=== PATIENT | male | born 1960 | race Caucasian/White ===

== ENCOUNTER 2017-09-04 10:53 | Emergency (ER) | payer SELFPAY ==
[2017-09-04] MEDS ORDERED: hydrALAZINE 20 MG/ML VIAL ONE (11:39)
[2017-09-04 12:03] LABS: Prothrombin Time 13.1 SEC (12.0-14.7)
[2017-09-04 12:13] LABS: Troponin I Less than 0.010 ng/mL (< 0.028)
[2017-09-04 12:18] LABS: ALT (SGPT) 7 U/L (8-55); AST (SGOT) 18 U/L (5-34); Alkaline Phosphatase 86 U/L (40-150); Anion Gap 11 mmol/L (10-20); BUN (Urea Nitrogen) 12 mg/dL (8.4-25.7); Bilirubin, Total 0.6 mg/dL (0.2-1.2); CK (CPK) 95 U/L (30-200); Calc. Creatinine Clearance 0 mL/min (70-130); Calcium 9.2 mg/dL (7.8-10.44); Carbon Dioxide 27 mmol/L (22-29); Chloride 105 mmol/L (98-107); Estimated GFR-MDRD Greater than 90; Globulin 3.4 g/dL (2.4-3.5); Lipase 37 U/L (8-78); Protein, Total 7.5 g/dL (6.0-8.3)
--- NOTE | 2017-09-04 12:42 | RAD ---
RADIOGRAPH CHEST 2 VIEWS: HISTORY: A 56-year-old male with hemoptysis. FINDINGS: There is no air space density, pulmonary edema, pleural effusion, pneumothorax, or cardiomegaly. IMPRESSION: No acute cardiopulmonary findings. jn [] POS: [facility]
[2017-09-04 12:53] LABS: #Basophils 0.1 thou/uL (0.0-0.2); #Eosinphils 0.2 thou/uL (0.0-0.7); #Lymphocytes 2.7 thou/uL (1.20-3.40); #Monocytes 0.5 thou/uL (0.11-0.59); #Neutrophils 3.5 thou/uL (1.40-6.50); %Basophils 1.1 % (0.0-1.0); %Eosinophils 2.3 % (0.0-10.0); %Lymphocytes 38.4 % (21.0-51.0); %Monocytes 7.3 % (0.0-10.0); Hematocrit 54.1 % (42.0-52.0); Red Blood Cell (RBC) Count 5.72 mill/uL (4.70-6.10)
[2017-09-04 13:08] LABS: Mean Platelet Volume 10.1 fL (7.4-10.4)
[2017-09-04 14:46] LABS: Troponin I Less than 0.010 ng/mL (< 0.028)
--- NOTE | 2017-10-06 17:01 | EKG ---
Test Reason : Blood Pressure : / mmHG Vent. Rate : 071 BPM Atrial Rate : 071 BPM P-R Int : 124 ms QRS Dur : 086 ms QT Int : 380 ms P-R-T Axes : 082 072 090 degrees QTc Int : 412 ms Sinus rhythm with occasional ventricular-paced complexes and Premature supraventricular complexes Abnormal ECG Confirmed by ANY BRITTON ([id number]), movie editor CORINNA ACEVEDO ([id number]) on 10/06/2017 5:00:56 PM Referred By: Confirmed By:ANY BRITTON
== END 2017-09-04 15:27 | disposition home or self-care (01) ==
LOC: ERS 10:53
DX: R05 Cough (principal); I10 Essential (primary) hypertension; F17.210 Nicotine dependence, cigarettes, uncomplicated
CPT/HCPCS: 36415; 71020; 80053; 82553; 83690; 84484; 85025; 85610; 85730; 93005; 94640; 96374; J0360; J7620

== ENCOUNTER 2017-09-08 17:22 | Emergency (ER) | payer SELFPAY ==
[2017-09-08] MEDS ORDERED: Fentanyl 100 MCG/2 ML VIAL ONE (17:42)
[2017-09-08 18:07] LABS: #Basophils 0.1 thou/uL (0.0-0.2); #Eosinphils 0.2 thou/uL (0.0-0.7); #Monocytes 0.7 thou/uL (0.11-0.59); #Neutrophils 4.6 thou/uL (1.40-6.50); %Basophils 1.1 % (0.0-1.0); %Eosinophils 1.8 % (0.0-10.0); %Lymphocytes 35.2 % (21.0-51.0); %Monocytes 8.2 % (0.0-10.0); Hematocrit 50.8 % (42.0-52.0); Mean Platelet Volume 9.4 fL (7.4-10.4); Red Blood Cell (RBC) Count 5.38 mill/uL (4.70-6.10); White Blood Cell (WBC) Count 8.6 thou/uL (4.8-10.8)
[2017-09-08 18:12] LABS: PTT 29.3 SEC (22.9-36.1); Prothrombin Time 13.5 SEC (12.0-14.7)
[2017-09-08 18:26] LABS: ALT (SGPT) Less than 7 U/L (8-55); AST (SGOT) 16 U/L (5-34); Alkaline Phosphatase 84 U/L (40-150); Anion Gap 17 mmol/L (10-20); BUN (Urea Nitrogen) 10 mg/dL (8.4-25.7); Bilirubin, Total 0.5 mg/dL (0.2-1.2); CK (CPK) 122 U/L (30-200); Calc. Creatinine Clearance 0 mL/min (70-130); Calcium 9.2 mg/dL (7.8-10.44); Carbon Dioxide 27 mmol/L (22-29); Chloride 101 mmol/L (98-107); Estimated GFR-MDRD Greater than 90; Globulin 3.2 g/dL (2.4-3.5); Protein, Total 7.3 g/dL (6.0-8.3)
[2017-09-08] MEDS ORDERED: Silver Sulfadiazine 1% Cream 50 GM JAR ONE (18:56)
== END 2017-09-08 19:37 | disposition home or self-care (01) ==
LOC: ERS 17:22
DX: T23.201A Burn of second degree of right hand, unspecified site, initial encounter (principal); T23.241A Burn of second degree of multiple right fingers (nail), including thumb, initial encounter; J44.9 Chronic obstructive pulmonary disease, unspecified; T31.0 Burns involving less than 10% of body surface; I10 Essential (primary) hypertension; F17.210 Nicotine dependence, cigarettes, uncomplicated; Z79.899 Other long term (current) drug therapy; X08.8XXA Exposure to other specified smoke, fire and flames, initial encounter
CPT/HCPCS: 16020; 80053; 82550; 85025; 85610; 85730; 90471; 96374; 99406; J3010

== ENCOUNTER 2019-01-02 12:12 | Inpatient (IN) | payer SELFPAY ==
--- NOTE | 2019-01-02 12:58 | RAD ---
CHEST ONE VIEW: Indication: Chest pain Comparison: None. FINDINGS: The costophrenic angles are excluded. The lungs are clear. Heart size is normal. No acute osseous abn ormality is evident. IMPRESSION: Limited exam. No definite acute abnormality. POS: [facility]
[2019-01-02 13:23] LABS: #Basophils 0.1 thou/uL (0.0-0.2); #Eosinphils 0.4 thou/uL (0.0-0.7); #Lymphocytes 2.8 thou/uL (1.20-3.40); #Monocytes 0.6 thou/uL (0.11-0.59); %Eosinophils 5.5 % (0.0-10.0); %Lymphocytes 35.4 % (21.0-51.0); %Monocytes 7.5 % (0.0-10.0); %Neutrophils 50.6 % (42.0-75.0); Hemoglobin 14.9 g/dL (14.0-18.0); Mean Corpuscular HGB CONC 32.9 g/dL (32.0-36.0); Mean Corpuscular Hemoglobin 29.5 pg (27.0-31.0); Mean Platelet Volume 9.8 fL (7.4-10.4); Platelet Count 161 thou/uL (130-400); RBC Distribution Width 11.8 % (11.5-14.5); Red Blood Cell (RBC) Count 5.06 mill/uL (4.70-6.10); White Blood Cell (WBC) Count 7.9 thou/uL (4.8-10.8)
[2019-01-02 13:47] LABS: ALT (SGPT) 11 U/L (8-55); AST (SGOT) 21 U/L (5-34); Albumin 4.1 g/dL (3.5-5.0); Alkaline Phosphatase 84 U/L (40-150); Anion Gap 14 mmol/L (10-20); BUN (Urea Nitrogen) 13 mg/dL (8.4-25.7); Bilirubin, Total 0.3 mg/dL (0.2-1.2); Calc. Creatinine Clearance 0 mL/min (70-130); Calcium 9.6 mg/dL (7.8-10.44); Carbon Dioxide 27 mmol/L (22-29); Chloride 104 mmol/L (98-107); Estimated GFR-MDRD 86; Globulin 3.6 g/dL (2.4-3.5); Glucose 106 mg/dL (70-105); Protein, Total 7.7 g/dL (6.0-8.3); Sodium 141 mmol/L (136-145)
[2019-01-02] MEDS ORDERED: Aspirin Chewable 81 MG TAB ONE (15:37)
--- NOTE | 2019-01-02 16:58 | ULT ---
ULTRASOUND VENOUS BILATERAL LOWER EXTREMITIES: Date: 01/02/19 HISTORY: Edema, swelling, pain. COMPARISON: None. TECHNIQUE: Real-time Bloom scale and color Doppler with spectral analysis of the bilateral lower extremity venous system was performed. The common femoral, femoral, proximal portions of greater saphenous and deep f emoral veins, as well as the popliteal and posterior tibial veins are interrogated. FINDINGS: Normal flow, augmentation, and compression. IMPRESSION: No deep venous thrombosis. POS: [facility]
[2019-01-02] MEDS ORDERED: Furosemide 40 MG/4 ML VIAL ONE (17:12)
[2019-01-02] MEDS ORDERED: Senokot S 8.6-50 MG TAB PO PRN (17:31)
[2019-01-02] MEDS ORDERED: Ondansetron ODT 4 MG TAB PO PRN (17:31)
[2019-01-02] MEDS ORDERED: Ondansetron PF 4 MG/2 ML Vial IVP PRN (17:31)
[2019-01-02] MEDS ORDERED: Calcium Carbonate 500 MG ChewTAB PO PRN (17:31)
[2019-01-02 17:37] LABS: Hemoglobin A1c 5.3 % (4.0-6.0)
--- NOTE | 2019-01-02 17:44 | HP ---
PRIMARY CARE PHYSICIAN: Anuja Ramírez. CHIEF COMPLAINT: Shortness of breath with abdominal distention and leg swelling of 2 weeks' duration. HISTORY OF PRESENT ILLNESS: The patient is a 58-year-old male with hypertension, who presented to the emergency room with above symptoms. Over the last 3-4 weeks, the patient developed gradual worsening shortness of breath along with significant abdominal distention and leg swelling. His symptoms got worse over the last 1-2 weeks. He complains of abdominal bloating along with early satiety. No nausea, vomiting, diarrhea, or constipation reported. He had a normal bowel movement this morning. He has gained approximately 30 pounds recently. He gets short of breath on minimal exertion. Lying down also makes him short of breath. He denies any paroxysmal nocturnal dyspnea. He also gets intermittent chest tightness without any radiation, nausea, vomiting, or diaphoresis. He also gets lightheaded and dizzy at times. No palpitations reported. No recent immobilization, travel, fever, or chills reported. He is currently compliant with lisinopril and hydrochlorothiazide 20/12.5 daily. In the emergency room, initial vital signs showed temperature 97.4, respirations of 19, pulse rate of 75 with a blood pressure of 218/102 with O2 saturation of 98% on room air. He received IV Lasix in the emergency room. EKG showed sinus rhythm without significant ST-T wave changes. Chest x-ray showed some pulmonary vascular congestion. Venous Doppler was negative for DVT. PAST MEDICAL HISTORY: Hypertension. PAST SURGICAL HISTORY: Bilateral knee surgery. ALLERGIES: NO KNOWN DRUG ALLERGIES. CURRENT HOME MEDICATION: Lisinopril and hydrochlorothiazide 20/12.5 daily. SOCIAL HISTORY: The patient quit smoking in 07/2018. 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 He continues to drink alcohol up to 2-3 times per week. Denies excessive alcohol intake. He has approximately [id number] smoking history. He currently lives at home with his family. FAMILY HISTORY: Negative for premature coronary artery disease. REVIEW OF SYSTEMS: All other review of systems were reviewed and were found negative. PHYSICAL EXAMINATION: VITAL SIGNS: As discussed above. GENERAL: A 58-year-old male, in mild distress. He is uncomfortable due to abdominal distention. HEENT: Head, atraumatic and normocephalic. Sclerae anicteric. Moist mucous membranes. No oral lesion. NECK: Supple. No significant JVP elevation noted. No carotid bruit. LUNGS: Showed few rales at bases. No significant wheezing, rhonchi, or accessory muscle use noted. HEART: S1 and S2 present. Regular rate and rhythm. No rubs or gallops appreciated. ABDOMEN: Firm. Bowel sounds present. No rebound or guarding. No costovertebral angle tenderness. EXTREMITIES: 3+ edema in bilateral lower extremity up to his thighs bilaterally. No calf tenderness. SKIN: Warm and dry. LYMPH NODES: No palpable lymph nodes in the neck. PERIPHERAL VASCULAR: Radial pulses palpable bilaterally. MUSCULOSKELETAL: No joint swelling or tenderness. LABORATORY FINDINGS: WBC 7.9 with hemoglobin 14.9 and platelet 161. A D-dimer was negative at 0.32. Chemistry showed sodium 141, potassium 4, chloride 104, bicarb 27, BUN 13, and creatinine 0.91. LFTs in normal range. BNP 33.6. Troponin was negative. Chest x-ray by my review as discussed above. EKG by my review as discussed above. IMPRESSION: 1. Shortness of breath with fatigue and 30-pound weight gain over the last 2-3 weeks. His symptoms are consistent with acute congestive heart failure exacerbation. Rule out hypothyroidism. 2. Hypertension with hypertensive urgency. 3. A 50 pack-year smoking history. The patient quit smoking 6 months ago. 4. Significant bilateral lower extremity edema, probably secondary to #1. 5. Chronic kidney disease, stage 2. 6. History of drug abuse in the remote past. 7. Chronic alcohol use. His LFTs are in normal range. PLAN: The patient will be monitored on the telemetry unit. Due to significant volume overload, he will require 2 to 3 days for stabilization. Echocardiogram will be obtained. We will continue lisinopril. We will start him on IV diuretics. Cardiac Rehab will be consulted. He was extensively counseled on fluid restriction. We will add thiamine and folic acid. Alcohol cessation was emphasized. We will monitor labs on a daily basis. Check TSH. His albumin is normal. Plan of care was discussed with the patient in detail. He stated understanding. Job ID: [id number]
[2019-01-02 17:45] LABS: Troponin I Less than 0.010 ng/mL (< 0.028)
[2019-01-02 20:04] LABS: Troponin I Less than 0.010 ng/mL (< 0.028)
[2019-01-02 20:51] VITALS: BMI 29.4
[2019-01-02] MEDS: Atorvastatin Calcium 40 MG TAB PO SCH (20:52)
[2019-01-02] MEDS: Lisinopril 20 MG TAB PO SCH (20:52)
[2019-01-03 05:40] LABS: ALT (SGPT) 10 U/L (8-55); AST (SGOT) 18 U/L (5-34); Albumin 3.9 g/dL (3.5-5.0); Alkaline Phosphatase 74 U/L (40-150); Anion Gap 12 mmol/L (10-20); BUN (Urea Nitrogen) 16 mg/dL (8.4-25.7); Bilirubin, Total 0.3 mg/dL (0.2-1.2); CK (CPK) 97 U/L (30-200); Calc. Creatinine Clearance 115 mL/min (70-130); Calcium 9.2 mg/dL (7.8-10.44); Carbon Dioxide 32 mmol/L (22-29); Cardiac Risk 4.7 (Less than 4.5); Chloride 103 mmol/L (98-107); Cholesterol 174 mg/dl (< 200 Desired); Estimated GFR-MDRD 86; Globulin 3.1 g/dL (2.4-3.5); Glucose 96 mg/dL (70-105); HDL Cholesterol 37 mg/dL (>60 Neg Risk); LDL Cholesterol, Calculated 101 mg/dL; Magnesium 2.2 mg/dL (1.6-2.6); Sodium 143 mmol/L (136-145); Triglycerides 181 mg/dL (Less than 150)
[2019-01-03] MEDS: Furosemide 40 MG/4 ML VIAL SLOW IVP SCH ×2 (05:41→13:43)
[2019-01-03] MEDS: Lisinopril 20 MG TAB PO SCH ×2 (08:22→21:44)
[2019-01-03] MEDS: Aspirin 325 MG TAB PO SCH (08:22)
[2019-01-03] MEDS ORDERED: hydrALAZINE 20 MG/ML VIAL SLOW IVP PRN (20:13)
--- NOTE | 2019-01-03 20:15 | PDOC.PN ---
- Subjective Encounter Start Date: 01/03/19 Encounter Start Time: 16:00 Patient seen and examined for CHF. SOB improving. Abd still feels bloated. No new complaints. No overnight events - Objective Resuscitation Status - Order Detail: 01/02/19 17:31 Resuscitation Status Routine Resuscitation Status: FULL: Full Resuscitation MAR Reviewed: Yes Vital Signs & Weight: Vital Signs (12 hours) Temp Pulse Resp BP Pulse Ox 01/03/19 19:30 98.2 F 77 16 141/76 H 92 L 01/03/19 16:00 98.0 F 65 18 123/90 95 01/03/19 12:00 98.9 F 63 17 141/94 H 94 L Weight Weight 197 lb 1.6 oz I&O: 01/02/19 01/03/19 01/04/19 06:59 06:59 06:59 Intake Total 500 720 Output Total 950 Balance 500 -230 Result Diagrams: 01/02/19 13:08 01/03/19 04:47 Radiology Reviewed by me: No (Echo - normal EF) EKG Reviewed by me: Yes (Tele SR) Phys Exam - Physical Examination Constitutional: NAD Neck: no JVD, supple Respiratory: no wheezing, no rhonchi few rales at bases Cardiovascular: RRR, no rub no heaves/pulsations Gastrointestinal: soft, positive bowel sounds firm, minimal tenderness, no rebound/guarding Musculoskeletal: pulses present, edema present Neurological: non-focal, normal sensation, moves all 4 limbs Psychiatric: normal affect, A&O x 3 Dx/Plan - Plan DVT proph w/SCDs 1. Acute diastolic HF exacerbation 2. Hypertension with hypertensive urgency. 3. 50 pack-year smoking history. The patient quit smoking 6 months ago. 4. Significant bilateral lower extremity edema, probably secondary to #1. 5. Chronic kidney disease, stage 2. 6. History of drug abuse in the remote past. 7. Chronic alcohol use. PLAN: Cont IV Lasix at 20 mg IV BID Labs daily Cont fluid rest Abd ultrasound to evaluate for ascites Cont Lisinopril Review of Systems - Review of Systems Respiratory: SOB with Excertion. negative: Cough, Dry, Shortness of Breath, Hemoptysis, Pleuritic Pain, Sputum, Wheezing Cardiovascular: negative: chest pain, palpitations, orthopnea, paroxysmal nocturnal dyspnea, edema, light headedness, other Gastrointestinal: Abdominal Pain (fullness). negative: Nausea, Vomiting, Diarrhea, Constipation, Melena, Hematochezia, Other - Medications/Allergies Allergies/Adverse Reactions: Allergies Allergy/AdvReac Type Severity Reaction Status Date / Time No Known Allergies Allergy Verified 01/02/19 22:12 Medications: Current Medications Acetaminophen (Tylenol) 650 mg PO Q4H PRN PRN Reason: Headache/Fever/Mild Pain (1-3) Aspirin (Aspirin) 325 mg PO DAILY [facility] Last Admin: 01/03/19 08:22 Dose: 325 mg Atorvastatin Calcium (Lipitor) 40 mg PO HS [facility] Last Admin: 01/02/19 20:52 Dose: 40 mg Calcium Carbonate (Tums) 1,000 mg PO Q4H PRN PRN Reason: Heartburn or Indigestion Furosemide (Lasix) 20 mg SLOW IVP 0600,1400 [facility] Hydralazine HCl (Apresoline) 10 mg SLOW IVP Q4H PRN PRN Reason: SBP Greater Than 180 Lisinopril (Zestril) 20 mg PO BID [facility] Last Admin: 01/03/19 08:22 Dose: 20 mg Ondansetron HCl (Zofran Odt) 4 mg PO Q6H PRN PRN Reason: Nausea/Vomiting Ondansetron HCl (Zofran) 4 mg IVP Q6H PRN PRN Reason: Nausea/Vomiting Senna/Docusate Sodium (Senokot S) 2 tab PO BID PRN PRN Reason: Constipation Sodium Chloride (Flush - Normal Saline) 10 ml IVF Q12HR PRN PRN Reason: Saline Flush
[2019-01-03] MEDS: Acetaminophen 325 MG TAB PO PRN (21:44)
[2019-01-03] MEDS: Atorvastatin Calcium 40 MG TAB PO SCH (21:45)
[2019-01-04] MEDS: Furosemide 20 MG/2 ML VIAL SLOW IVP SCH ×2 (05:54→15:19)
[2019-01-04 07:57] LABS: #Basophils 0.1 thou/uL (0.0-0.2); #Eosinphils 0.4 thou/uL (0.0-0.7); #Lymphocytes 3.4 thou/uL (1.20-3.40); #Monocytes 0.8 thou/uL (0.11-0.59); %Eosinophils 4.9 % (0.0-10.0); %Monocytes 9.4 % (0.0-10.0); %Neutrophils 45.8 % (42.0-75.0); Hemoglobin 15.8 g/dL (14.0-18.0); Mean Corpuscular HGB CONC 31.9 g/dL (32.0-36.0); Mean Corpuscular Hemoglobin 29.1 pg (27.0-31.0); Mean Platelet Volume 10.2 fL (7.4-10.4); Platelet Count 174 thou/uL (130-400); RBC Distribution Width 11.8 % (11.5-14.5); Red Blood Cell (RBC) Count 5.44 mill/uL (4.70-6.10); White Blood Cell (WBC) Count 8.7 thou/uL (4.8-10.8)
--- NOTE | 2019-01-04 08:02 | ULT ---
ULTRASOUND ABDOMEN LIMITED: INDICATION: Abdominal distention. FINDINGS: Imaging of the 4 abdominal quadrants is performed. There is no evidence of significant ascites. Par tial imaging of the gallbladder is noted. IMPRESSION: No evidence of abdominal ascites. POS: [facility]
[2019-01-04 08:22] LABS: ALT (SGPT) 12 U/L (8-55); AST (SGOT) 22 U/L (5-34); Albumin 4.3 g/dL (3.5-5.0); Alkaline Phosphatase 83 U/L (40-150); Anion Gap 12 mmol/L (10-20); BUN (Urea Nitrogen) 19 mg/dL (8.4-25.7); Bilirubin, Total 0.6 mg/dL (0.2-1.2); Calc. Creatinine Clearance 93 mL/min (70-130); Calcium 9.5 mg/dL (7.8-10.44); Carbon Dioxide 32 mmol/L (22-29); Chloride 101 mmol/L (98-107); Estimated GFR-MDRD 68; Globulin 3.5 g/dL (2.4-3.5); Glucose 90 mg/dL (70-105); Magnesium 2.2 mg/dL (1.6-2.6); Potassium 3.9 mmol/L (3.5-5.1); Protein, Total 7.8 g/dL (6.0-8.3); Sodium 141 mmol/L (136-145)
[2019-01-04] MEDS: Aspirin 325 MG TAB PO SCH (09:03)
[2019-01-04] MEDS: Lisinopril 20 MG TAB PO SCH ×2 (09:03→21:11)
--- NOTE | 2019-01-04 12:20 | PDOC.PN ---
- Subjective Encounter Start Date: 01/04/19 Encounter Start Time: 12:00 Subjective: feels better, no sob -: is amb in hallway - Objective Resuscitation Status - Order Detail: 01/02/19 17:31 Resuscitation Status Routine Resuscitation Status: FULL: Full Resuscitation MAR Reviewed: Yes Vital Signs & Weight: Vital Signs (12 hours) Temp Pulse Resp BP BP Pulse Ox 01/04/19 09:03 130/79 01/04/19 08:00 96.3 F L 61 16 130/79 94 L 01/04/19 03:46 97.5 F L 62 17 117/71 92 L Weight Weight 196 lb 11.2 oz I&O: 01/03/19 01/04/19 01/05/19 06:59 06:59 07:59 Intake Total 500 970 Output Total 1475 Balance 500 -505 Result Diagrams: 01/04/19 07:31 01/04/19 07:31 Phys Exam - Physical Examination HEENT: PERRLA, moist MMs Neck: no JVD, supple Respiratory: no wheezing, no rales Cardiovascular: RRR, no significant murmur Gastrointestinal: soft, non-tender, positive bowel sounds Musculoskeletal: pulses present, edema present Neurological: non-focal, moves all 4 limbs Psychiatric: normal affect, A&O x 3 Dx/Plan (1) Acute exacerbation of CHF (congestive heart failure) Code(s): I50.9 - HEART FAILURE, UNSPECIFIED Status: Acute Qualifiers: Heart failure type: diastolic Qualified Code(s): I50.33 - Acute on chronic diastolic (congestive) heart failure (2) HTN (hypertension) Code(s): I10 - ESSENTIAL (PRIMARY) HYPERTENSION Status: Chronic Qualifiers: Hypertension type: essential hypertension Qualified Code(s): I10 - Essential (primary) hypertension (3) Dyslipidemia Code(s): E78.5 - HYPERLIPIDEMIA, UNSPECIFIED Status: Acute (4) COPD (chronic obstructive pulmonary disease) Status: Suspected - Plan is on lasix, asp, lipitor and lisinopril -: nebs prn -: echo shows good ef -: he was told he will get a stress test prior to discharge -: hemostable * . Review of Systems - Medications/Allergies Allergies/Adverse Reactions: Allergies Allergy/AdvReac Type Severity Reaction Status Date / Time No Known Allergies Allergy Verified 01/02/19 22:12 Medications: Current Medications Acetaminophen (Tylenol) 650 mg PO Q4H PRN PRN Reason: Headache/Fever/Mild Pain (1-3) Last Admin: 01/03/19 21:44 Dose: 650 mg Aspirin (Aspirin) 325 mg PO DAILY [facility] Last Admin: 01/04/19 09:03 Dose: 325 mg Atorvastatin Calcium (Lipitor) 40 mg PO HS [facility] Last Admin: 01/03/19 21:45 Dose: 40 mg Calcium Carbonate (Tums) 1,000 mg PO Q4H PRN PRN Reason: Heartburn or Indigestion Furosemide (Lasix) 20 mg SLOW IVP 0600,1400 [facility] Last Admin: 01/04/19 05:54 Dose: 20 mg Hydralazine HCl (Apresoline) 10 mg SLOW IVP Q4H PRN PRN Reason: SBP Greater Than 180 Lisinopril (Zestril) 20 mg PO BID [facility] Last Admin: 01/04/19 09:03 Dose: 20 mg Ondansetron HCl (Zofran Odt) 4 mg PO Q6H PRN PRN Reason: Nausea/Vomiting Ondansetron HCl (Zofran) 4 mg IVP Q6H PRN PRN Reason: Nausea/Vomiting Senna/Docusate Sodium (Senokot S) 2 tab PO BID PRN PRN Reason: Constipation Sodium Chloride (Flush - Normal Saline) 10 ml IVF Q12HR PRN PRN Reason: Saline Flush Last Admin: 01/04/19 09:04 Dose: 10 ml
[2019-01-04] MEDS ORDERED: ISOVUE-370 76%-LOCM 1 ML ONE (12:59)
[2019-01-04 16:18] LABS: Acetaminophen Less than 6.0 mcg/mL (10.0-30.0); Alcohol Less than 10 mg/dL (Less than 10); Salicylate Less than 8.0 mg/dL (15.0-30.0)
[2019-01-04 16:38] LABS: HBCM Index 0.05 S/CO (0-0.79); HBSAg Index 0.24 S/CO (0-0.99); Hep A IgM AB Non-Reactive (NonReactive); Hep A IgM S/CO 0.16 S/CO (0-0.79); Hep B Surf Ag Non-Reactive S/CO (NonReactive); Hep C IgG Ab Non-Reactive (NonReactive); Hep C Index 0.16 S/CO (0-0.79); Hepatitis B Core IgM Abs Non-Reactive (NonReactive)
--- NOTE | 2019-01-04 18:10 | CT ---
CT OF THE ABDOMEN AND PELVIS WITH IV CONTRAST: 01/04/19 INDICATION: Abdominal distention with alcohol abuse. FINDINGS: There is mild subsegmental volume loss in the lung bases. There is fatty infiltration of the liver. The pancreas, adrenal glands and left kidney are normal appearing. The spleen is normal appearing. There is exophytic hyperdense lesion off the inferior pole right kidney measuring 1.1 cm, cannot be f urther characterized. No free fluid or enlarged lymph nodes are evident. There is normal appendix in the right lower quadrant. There are scattered diverticula involving the c olon. The bladder is partially decompressed. No acute osseous abnormality is evident. IMPRESSION: 1. Fatty liver. 2. Exophytic hyperdense lesion off the inferior pole right kidney. Dedicated renal ultrasound is recommended for further evaluation. 3. Colonic diverticulosis. POS: [facility]
[2019-01-04 18:14] LABS: Amphetamine Not Detected (NotDetected); Barbiturates Screen Not Detected (NotDetected); Benzodiazepine Screen Not Detected (NotDetected); Cocaine Metabolite Screen Not Detected (NotDetected); Medtox Control Line Valid? VALID (VALID); Medtox Reader # READER 4; Methadone Not Detected (NotDetected); Methamphetamine Not Detected (NotDetected); Opiate Screen Not Detected (NotDetected); Oxycodone Screen Not Detected (NotDetected); Phencyclidine (PCP) Not Detected (NotDetected); THC/Cannabinoid Screen Not Detected (NotDetected); Tricyclic Screen Not Detected (NotDetected)
--- NOTE | 2019-01-04 19:29 | EKG ---
Test Reason : CP Blood Pressure : / mmHG Vent. Rate : 084 BPM Atrial Rate : 084 BPM P-R Int : 120 ms QRS Dur : 086 ms QT Int : 370 ms P-R-T Axes : 064 060 092 degrees QTc Int : 437 ms Normal sinus rhythm Normal ECG Confirmed by BEAU MENDEZ D.O. ([id number]), production editor CORINNA ACEVEDO ([id number]) on 01/04/2019 7:29:25 PM Referred By: Confirmed By:BEAU MENDEZ D.O.
[2019-01-04] MEDS: Atorvastatin Calcium 40 MG TAB PO SCH (21:11)
[2019-01-04] MEDS: Acetaminophen 325 MG TAB PO PRN (21:12)
[2019-01-05] MEDS: Furosemide 20 MG/2 ML VIAL SLOW IVP SCH ×2 (06:09→14:19)
[2019-01-05 06:53] LABS: ALT (SGPT) 12 U/L (8-55); AST (SGOT) 18 U/L (5-34); Alkaline Phosphatase 78 U/L (40-150); Anion Gap 15 mmol/L (10-20); BUN (Urea Nitrogen) 17 mg/dL (8.4-25.7); Bilirubin, Total 0.3 mg/dL (0.2-1.2); Calc. Creatinine Clearance 99 mL/min (70-130); Calcium 8.9 mg/dL (7.8-10.44); Carbon Dioxide 28 mmol/L (22-29); Chloride 101 mmol/L (98-107); Estimated GFR-MDRD 74; Globulin 3.2 g/dL (2.4-3.5); Glucose 148 mg/dL (70-105); Magnesium 2.1 mg/dL (1.6-2.6); Potassium 3.7 mmol/L (3.5-5.1); Protein, Total 7.2 g/dL (6.0-8.3); Sodium 140 mmol/L (136-145)
[2019-01-05] MEDS: Aspirin 325 MG TAB PO SCH (11:05)
[2019-01-05] MEDS: Lisinopril 20 MG TAB PO SCH (11:05)
[2019-01-05 11:15] VITALS: BP 127/81; TEMP 97.6
--- NOTE | 2019-01-05 11:37 | NM ---
NUCLEAR MEDICINE CARDIAC PERFUSION EXAMINATION WITH EJECTION FRACTION: HISTORY: A 58-year-old male with chest pain. TECHNIQUE: A single-day nuclear medicine cardiac perfusion examination was performed. Rest images were obtained using 10.4 mCi of Technetium 99m sestamibi. Stress images were obtained using 28.3 mCi of Technetiu m 99m sestamibi. This was given at the peak of exercise on a treadmill using a Curtis protocol. The patient achieved 90% maximum predicted heart rate. FINDINGS: Tomographic images showed no fixed or reversible perfusion defects. Gated images show normal wall mo tion with an ejection fraction of 59%. EDV is 119 mL. LHR is 0.3. TID is 0.9. IMPRESSION: No evidence of ischemia. POS: [facility]
--- NOTE | 2019-01-05 14:18 | PDOC.PN ---
- Subjective Encounter Start Date: 01/05/19 Encounter Start Time: 10:20 Subjective: no complaints -: had 3 large BM's yesterday with resolution of abd distention -: no chest pain - Objective Resuscitation Status - Order Detail: 01/02/19 17:31 Resuscitation Status Routine Resuscitation Status: FULL: Full Resuscitation MAR Reviewed: Yes Vital Signs & Weight: Vital Signs (12 hours) Temp Pulse Resp BP Pulse Ox 01/05/19 10:56 97.6 F 75 18 127/81 94 L 01/05/19 07:35 97.5 F L 63 16 131/87 95 01/05/19 03:25 97.6 F 58 L 20 112/76 92 L Weight Weight 194 lb 8 oz I&O: 01/04/19 01/05/19 01/06/19 05:59 06:59 06:59 Intake Total Output Total Balance Result Diagrams: 01/04/19 07:31 01/05/19 06:18 Phys Exam - Physical Examination HEENT: PERRLA, moist MMs Neck: no JVD, supple Respiratory: no wheezing, no rales Cardiovascular: RRR, no significant murmur Gastrointestinal: soft, non-tender, no distention, positive bowel sounds Musculoskeletal: no edema, pulses present Neurological: non-focal, moves all 4 limbs Psychiatric: normal affect, A&O x 3 Dx/Plan (1) Acute exacerbation of CHF (congestive heart failure) Code(s): I50.9 - HEART FAILURE, UNSPECIFIED Status: Acute Qualifiers: Heart failure type: diastolic Qualified Code(s): I50.33 - Acute on chronic diastolic (congestive) heart failure (2) HTN (hypertension) Code(s): I10 - ESSENTIAL (PRIMARY) HYPERTENSION Status: Chronic Qualifiers: Hypertension type: essential hypertension Qualified Code(s): I10 - Essential (primary) hypertension (3) Dyslipidemia Code(s): E78.5 - HYPERLIPIDEMIA, UNSPECIFIED Status: Acute (4) COPD (chronic obstructive pulmonary disease) Status: Suspected - Plan hemostable -: dc pt home -: stress test is -ve, CT abd shows fatty liver, no ac changes * .
--- NOTE | 2019-01-05 16:17 | DIS ---
DATE OF ADMISSION: 01/02/2019 DATE OF DISCHARGE: 01/05/2019 DISCHARGE DISPOSITION: To home. PRIMARY DISCHARGE DIAGNOSES: Acute congestive heart failure exacerbation with diastolic dysfunction class B, suspected chronic obstructive pulmonary disease; hypertension; dyslipidemia. PROCEDURES DONE DURING HOSPITALIZATION: Echo with 2D Doppler showed EF of 55% to 60%, with diastolic dysfunction. Chest x-ray showed no acute abnormality. Ultrasound venous Doppler of lower extremity showed no evidence of DVT. Abdominal and pelvic CAT scan with and without contrast done showed fatty liver. There was exophytic hyperdense lesion of the inferior pole of right kidney. Colonic diverticulosis. Nuclear stress test done showed no evidence of ischemia. TID was 0.9. There was no fixed or reversible perfusion defects seen. H and H 15 and 49, platelet count is 174. Total cholesterol 174, triglycerides 181, LDL 101, HDL 37, TSH 1.9. BUN 17, creatinine 1.0. HbA1c 5.3. Troponin x2 negative. BNP 33. Urine drug screen is negative. Plasma alcohol less than 10. Acute hepatitis panel was negative. DISCHARGE MEDICATIONS: 1. Lipitor 40 mg p.o. at bedtime. 2. Coreg 3.125 mg p.o. twice daily. 3. Lisinopril with hydrochlorothiazide 20/12.5 mg p.o. daily. ALLERGIES: NO KNOWN DRUG ALLERGIES. DISCHARGE PLAN: The patient to follow up with primary care physician in one week. BRIEF COURSE DURING HOSPITALIZATION: The patient initially came to ER with complaints of chest pain and shortness of breath. He also complained of abdominal distention and lower extremity swelling. In view of this history and clinical exam, the patient was admitted to telemetry. He was gently diuresed for suspected CHF exacerbation with diastolic dysfunction. Echo revealed good ejection fraction with diastolic dysfunction. He was euvolemic. The patient had nuclear stress test done, which showed no reversible ischemia. The patient had CT of the abdomen and pelvis with and without contrast done, which showed findings of fatty liver, but no acute abnormalities. Postcontrast administration for CAT scan, the patient had 3 massive bowel movements, which completely resolved his abdominal distention and pain. Prior to discharge, he is ambulating and eating well. Please see a [id number] documentation for the day of discharge on [employer]. Job ID: [id number] [facility]
== END 2019-01-05 16:40 | disposition home or self-care (01) | DRG 291 ==
LOC: ERS 12:12 → ERHOLD 15:59 → OBSVTOIN 17:00 → 2NO 19:16
PROVIDERS: ADMIT Internal Medicine; ATTEND Internal Medicine
DX: I13.0 Hypertensive heart and chronic kidney disease with heart failure and stage 1 through stage 4 chronic kidney disease, or unspecified chronic kidney disease (principal); I50.33 Acute on chronic diastolic (congestive) heart failure; I16.0 Hypertensive urgency; N18.2 Chronic kidney disease, stage 2 (mild); J44.9 Chronic obstructive pulmonary disease, unspecified; E78.5 Hyperlipidemia, unspecified; K57.30 Diverticulosis of large intestine without perforation or abscess without bleeding; F15.11 Other stimulant abuse, in remission; K76.0 Fatty (change of) liver, not elsewhere classified; Z87.891 Personal history of nicotine dependence; Z72.89 Other problems related to lifestyle; Z98.890 Other specified postprocedural states; Z79.899 Other long term (current) drug therapy
CPT/HCPCS: 36415; 71045; 74177; 76705; 78452; 80053; 80061; 80074; 80306; 80307; 82550; 83036; 83735; 83880; 84443; 84484; 85025; 85379; 93005; 93017; 93306; 93798; 93970; 96374; A9500; J1940; Q0162; Q9966

== ENCOUNTER 2019-03-26 15:35 | Emergency (ER) | payer SELFPAY ==
--- NOTE | 2019-03-26 16:14 | RAD ---
EXAM: Chest PA and lateral: HISTORY: Pain COMPARISON: 09/04/2017 FINDINGS: Heart: Normal cardiac silhouette Aorta: Unremarkable Pulmonary vessels: Normal Costophrenic angles: Costophrenic angles are clear. Lungs: No consolidation or masses. Lungs are hyperinflated with chronic changes. Pneumothorax: No pneumothorax Osseous structures: No osseous abnormalities IMPRESSION: 1. No acute cardiopulmonary process. 2. Hyperinflation with presumed chronic changes of the lung parenchyma.
[2019-03-26 16:19] LABS: #Basophils 0.1 thou/uL (0.0-0.2); #Eosinphils 0.2 thou/uL (0.0-0.7); #Lymphocytes 2.7 thou/uL (1.20-3.40); #Monocytes 0.5 thou/uL (0.11-0.59); #Neutrophils 3.9 thou/uL (1.40-6.50); %Basophils 0.9 % (0.0-1.0); %Eosinophils 3.2 % (0.0-10.0); %Lymphocytes 36.3 % (21.0-51.0); %Monocytes 7.3 % (0.0-10.0); %Neutrophils 52.2 % (42.0-75.0); Hemoglobin 13.2 g/dL (14.0-18.0); Mean Corpuscular HGB CONC 33.8 g/dL (32.0-36.0); Mean Corpuscular Hemoglobin 29.4 pg (27.0-31.0); Mean Corpuscular Volume 87.2 fL (78.0-98.0); Mean Platelet Volume 9.3 fL (7.4-10.4); Platelet Count 157 thou/uL (130-400); RBC Distribution Width 12.2 % (11.5-14.5); White Blood Cell (WBC) Count 7.5 thou/uL (4.8-10.8)
[2019-03-26] MEDS ORDERED: Lisinopril 10 MG TAB ONE (16:36)
[2019-03-26 16:48] LABS: ALT (SGPT) 13 U/L (8-55); AST (SGOT) 21 U/L (5-34); Albumin 4.2 g/dL (3.5-5.0); Alkaline Phosphatase 84 U/L (40-150); Anion Gap 11 mmol/L (10-20); BUN (Urea Nitrogen) 13 mg/dL (8.4-25.7); Bilirubin, Total 0.3 mg/dL (0.2-1.2); CK (CPK) 175 U/L (30-200); Calc. Creatinine Clearance 0 mL/min (70-130); Calcium 9.3 mg/dL (7.8-10.44); Carbon Dioxide 28 mmol/L (22-29); Chloride 107 mmol/L (98-107); Estimated GFR-MDRD 86; Globulin 2.9 g/dL (2.4-3.5); Glucose 125 mg/dL (70-105); Potassium 3.7 mmol/L (3.5-5.1); Protein, Total 7.1 g/dL (6.0-8.3); Sodium 142 mmol/L (136-145)
== END 2019-03-26 17:26 | disposition home or self-care (01) ==
LOC: ERS 15:35
DX: I11.0 Hypertensive heart disease with heart failure (principal); I50.9 Heart failure, unspecified; F17.210 Nicotine dependence, cigarettes, uncomplicated; Z79.899 Other long term (current) drug therapy
CPT/HCPCS: 36415; 71046; 80053; 82550; 83880; 84484; 85025; 93005

== ENCOUNTER 2020-09-13 11:05 | Emergency (ER) | payer OTHER, SELFPAY ==
[2020-09-13] MEDS ORDERED: predniSONE 20 MG TAB ONE (11:32)
[2020-09-13] MEDS ORDERED: Albuterol Sulfate 2.5 mg/0.5 ml Neb ONE (11:32)
[2020-09-13] MEDS ORDERED: Ipratropium Bromide 2.5 ml Neb ONE (11:32)
--- NOTE | 2020-09-13 11:59 | RAD ---
Portable frontal chest radiograph: 09/13/2020 COMPARISON: 03/26/2019 HISTORY: Short of breath FINDINGS: Mild linear density in the medial left lung base suggests scar and/or volume loss. No pneum othorax or pleural fluid. No focal consolidation or alveolar edema. IMPRESSION: No focal consolidation or alveolar edema.
[2020-09-13] MEDS ORDERED: Albuterol Sulfate 2.5 mg/3 ml Neb ONE (12:56)
== END 2020-09-13 13:40 ==
LOC: EEVIPCON 11:05 → ERS 11:05
DX: J44.1 Chronic obstructive pulmonary disease with (acute) exacerbation (principal); Z79.899 Other long term (current) drug therapy; J44.9 Chronic obstructive pulmonary disease, unspecified; I11.0 Hypertensive heart disease with heart failure; I50.9 Heart failure, unspecified; Z87.891 Personal history of nicotine dependence
CPT/HCPCS: 71045; 94640; 94644; J7512; J7611

== ENCOUNTER 2020-11-04 18:34 | Emergency (ER) | payer OTHER, SELFPAY ==
[2020-11-04 19:02] LABS: #Eosinphils 0.2 thou/uL (0.0-0.7); #Lymphocytes 2.5 thou/uL (1.20-3.40); #Monocytes 1.1 thou/uL (0.11-0.59); #Neutrophils 8.8 thou/uL (1.40-6.50); %Basophils 0.3 % (0.0-1.0); %Eosinophils 1.9 % (0.0-10.0); %Monocytes 8.2 % (0.0-10.0); %Neutrophils 69.6 % (42.0-75.0); Hemoglobin 14.4 g/dL (14.0-18.0); Mean Corpuscular HGB CONC 33.7 g/dL (32.0-36.0); Mean Corpuscular Hemoglobin 28.9 pg (27.0-31.0); Mean Corpuscular Volume 85.7 fL (78.0-98.0); Mean Platelet Volume 9.6 fL (7.4-10.4); Platelet Count 157 thou/uL (130-400); RBC Distribution Width 12.3 % (11.5-14.5); Red Blood Cell (RBC) Count 4.99 mill/uL (4.70-6.10); White Blood Cell (WBC) Count 12.7 thou/uL (4.8-10.8)
--- NOTE | 2020-11-04 19:13 | RAD ---
Exam: Chest one view HISTORY:Difficulty breathing. COPD and CHF. Dyspnea. Comparison: 09/13/2020 FINDINGS: Cardiac silhouette:Normal cardiac silhouette. There is a loop recorder projecting over the left hemit horax. Aorta: Unremarkable Pulmonary vessels: Normal Costophrenic angles: Clear LUNGS: No masses or consolidation. Chronic lung parenchymal changes. Pneumothorax: None Osseous abnormalities: None IMPRESSION: No acute cardiopulmonary process.
[2020-11-04 19:24] LABS: ALT (SGPT) 12 U/L (8-55); AST (SGOT) 17 U/L (5-34); Albumin 4.3 g/dL (3.5-5.0); Alkaline Phosphatase 79 U/L (40-110); Anion Gap 11 mmol/L (10-20); BUN (Urea Nitrogen) 18 mg/dL (8.4-25.7); Bilirubin, Total 0.3 mg/dL (0.2-1.2); CK (CPK) 84 U/L (30-200); Calc. Creatinine Clearance 0 mL/min (70-130); Carbon Dioxide 33 mmol/L (22-29); Chloride 104 mmol/L (98-107); Globulin 3.2 g/dL (2.4-3.5); Glucose 109 mg/dL (70-105); Magnesium 2.1 mg/dL (1.6-2.6); Protein, Total 7.5 g/dL (6.0-8.3); Sodium 144 mmol/L (136-145)
[2020-11-04] MEDS ORDERED: Furosemide 40 MG/4 ML VIAL ONE (19:53)
[2020-11-04] MEDS ORDERED: Albuterol 200 PUFF (6.7GM INHALER) ONE (19:53)
[2020-11-04] MEDS ORDERED: methylPREDNISolone Sod Succ/PF 125 MG/2 ML VIAL ONE (19:53)
== END 2020-11-04 21:16 ==
LOC: ERS 18:34
DX: J44.1 Chronic obstructive pulmonary disease with (acute) exacerbation (principal); I11.0 Hypertensive heart disease with heart failure; I50.9 Heart failure, unspecified; Z87.891 Personal history of nicotine dependence; Z79.899 Other long term (current) drug therapy
CPT/HCPCS: 36415; 71045; 80053; 82550; 83735; 83880; 84484; 85025; 93005; 96374; 96375; J1940; J2930

== ENCOUNTER 2021-01-06 12:38 | Emergency (ER) | payer OTHER, SELFPAY ==
[2021-01-06 13:08] LABS: #Eosinphils 0.2 thou/uL (0.0-0.7); #Lymphocytes 2.8 thou/uL (1.20-3.40); #Monocytes 0.5 thou/uL (0.11-0.59); #Neutrophils 4.6 thou/uL (1.40-6.50); %Basophils 0.4 % (0.0-1.0); %Eosinophils 2.1 % (0.0-10.0); %Lymphocytes 34.8 % (21.0-51.0); %Monocytes 6.2 % (0.0-10.0); %Neutrophils 56.5 % (42.0-75.0); Hemoglobin 14.9 g/dL (14.0-18.0); Mean Corpuscular HGB CONC 33.1 g/dL (32.0-36.0); Mean Corpuscular Hemoglobin 29.1 pg (27.0-31.0); Mean Platelet Volume 9.2 fL (7.4-10.4); Platelet Count 180 thou/uL (130-400); RBC Distribution Width 12.8 % (11.5-14.5); Red Blood Cell (RBC) Count 5.12 mill/uL (4.70-6.10); White Blood Cell (WBC) Count 8.1 thou/uL (4.8-10.8)
[2021-01-06 13:33] LABS: ALT (SGPT) 14 U/L (8-55); AST (SGOT) 17 U/L (5-34); Albumin 4.5 g/dL (3.5-5.0); Alkaline Phosphatase 93 U/L (40-110); Anion Gap 12 mmol/L (10-20); BUN (Urea Nitrogen) 16 mg/dL (8.4-25.7); Bilirubin, Total 0.5 mg/dL (0.2-1.2); Calc. Creatinine Clearance 0 mL/min (70-130); Calcium 9.5 mg/dL (7.8-10.44); Carbon Dioxide 31 mmol/L (22-29); Chloride 103 mmol/L (98-107); Globulin 3.7 g/dL (2.4-3.5); Glucose 132 mg/dL (70-105); Lipase 34 U/L (8-78); Potassium 3.9 mmol/L (3.5-5.1); Protein, Total 8.2 g/dL (6.0-8.3); Sodium 142 mmol/L (136-145)
[2021-01-06] MEDS ORDERED: Furosemide 40 MG/4 ML VIAL ONE (14:43)
== END 2021-01-06 15:22 ==
LOC: ERS 12:38
DX: I11.0 Hypertensive heart disease with heart failure (principal); I50.9 Heart failure, unspecified; J44.9 Chronic obstructive pulmonary disease, unspecified; N28.9 Disorder of kidney and ureter, unspecified; Z87.891 Personal history of nicotine dependence; Z79.899 Other long term (current) drug therapy
CPT/HCPCS: 71045; 74177; 80053; 83690; 83880; 84484; 85025; 93005; 94760; 96374; J1940